=== PATIENT | male | born 1975 | race Caucasian/White ===

== ENCOUNTER 2017-05-07 22:32 | Emergency (ER) | payer OTHER | END 2017-05-08 05:15 | disposition home or self-care (01) | LOC: ER1 22:32 | DX: S43.102A Unspecified dislocation of left acromioclavicular joint, initial encounter (principal); F17.210 Nicotine dependence, cigarettes, uncomplicated; W10.9XXA Fall (on) (from) unspecified stairs and steps, initial encounter; Y92.009 Unspecified place in unspecified non-institutional (private) residence as the place of occurrence of the external cause | CPT/HCPCS: 73030; 99283 ==

== ENCOUNTER → 2017-05-26 | Outpatient (CLI) | payer OTHER | LOC: RAD 10:39 | DX: M25.551 Pain in right hip (principal); M25.512 Pain in left shoulder; Z98.890 Other specified postprocedural states | CPT/HCPCS: 73030; 73502 ==